=== PATIENT | male | born 1995 | race Caucasian/White ===

== ENCOUNTER 2020-06-04 13:49 | Outpatient (CLI) | payer OTHER, SELFPAY ==
--- NOTE | ~2020-06-04 | US_ITS ---
EXAMINATION: US scrotum doppler EXAM DATE: 06/04/2020 14:31 INDICATION: Hematospermia. TECHNIQUE: Multiple grayscale and Doppler images of the testicles and scrotum were obtained bilateral ly. There are no prior studies for comparison. FINDINGS: Right testicle measures 5.7 x 2.9 x 3.6 cm and is morphologically normal. Low resistance Doppler diaz w confirmed. The epididymis is unremarkable. There is no hydrocele or varicocele. Left testicle measures 5.5 x 2.8 x 3.4 cm and is morphologically normal. Low resistance Doppler flow confirmed. The epididymis is unremarkable. Small hydrocele. IMPRESSION: 1. Small left hydrocele. Reviewed, dictated and finalized at location A. IMPRESSION: 1. Small left hydrocele.
== END 2020-06-04 13:50 | disposition home or self-care (01) ==
PROVIDERS: PCP Internal Medicine; Visit Provider Internal Medicine
DX: R36.1 Hematospermia (principal); N43.3 Hydrocele, unspecified
CPT/HCPCS: 76870; 93976

== ENCOUNTER 2021-11-17 11:38 | Outpatient (CLI) | payer OTHER, SELFPAY ==
[2021-11-17 12:37] LABS: Rheumatoid Factor < 8.6 IU/ML (<12)
[2021-11-17 12:40] LABS: Complement C3 120 mg/dL (88-165)
[2021-11-21 04:57] LABS: Angiotensin Converting Enzyme 23.4 U/L (9-67)
[2021-11-21 13:22] LABS: Anti Cyclic Citrullinated Pept <16 Units (<20)
[2021-11-22 20:11] LABS: SM Antibody <1.0; SM/RNP Antibody <1.0
[2021-11-22 20:12] LABS: SS-A <1.0; SS-B <1.0
[2021-11-23 12:48] LABS: ANCA Screen Negative (Negative); Myeloperoxidase Ab <1.0 AI (<1.0); Proteinase-3 Ab <1.0 AI (<1.0); S cerevisiae Ab (IgA) 7.1 U (<=20.0)
== END 2021-11-17 11:39 | disposition home or self-care (01) ==
PROVIDERS: PCP Emergency Medicine; Visit Provider Internal Medicine
DX: R76.8 Other specified abnormal immunological findings in serum (principal); M35.00 Sjogren syndrome, unspecified; M19.90 Unspecified osteoarthritis, unspecified site
CPT/HCPCS: 36415; 82164; 86036; 86160; 86200; 86225; 86235; 86430; 86671